=== PATIENT | male | born 1960 | race Caucasian/White ===

== ENCOUNTER 2020-07-31 06:44 | Outpatient (REF) | payer BC, SELFPAY ==
[2020-07-31 11:32] LABS: Glucose Urine UA NEG (NEG); Leukocyte Esterase Urine NEG (NEG); Nitrite Urine NEG (NEG); Specific Gravity - Urine >= 1.030 (1.005-1.025); Urine Blood TRACE (NEG); Urine Ketones NEG (NEG); Urine Protein NEG (NEG-TRACE)
[2020-07-31 11:43] LABS: Hematocrit 51.7 % (42-52); Hemoglobin 17.1 g/dl (14.0-18.0); Mean Corpuscular HGB Conc 33.1 g/dl (31.0-36.0); Mean Corpuscular Hemoglobin 30.4 pg (27.0-33.0); Mean Platelet Volume 10.8 fL (9.4-12.4); Platelet Count 261 X10*3/uL (160-400); Red Blood Count 5.62 X10*6/uL (4.60-5.80); White Blood Count 9.6 X10*3/uL (4.8-10.8)
[2020-07-31 11:52] LABS: Appearance Urine CLEAR; Color Urine YELLOW
[2020-07-31 12:05] LABS: Alanine Aminotransferase 20 U/L (0-40); Albumin Level 4.3 g/dL (3.5-5.0); Alkaline Phosphatase 71 U/L (39-117); Anion Gap 15 (12-20); Aspartate Amino Transferase 15 U/L (5-37); Blood Urea Nitrogen 15 mg/dL (9-16); Calcium 8.8 mg/dL (8.4-10.2); Carbon Dioxide 25 mmol/L (22-29); Chloride 106 mmol/L (96-108); Cholesterol 235 mg/dL; Estimated Glomerular Filt Rate > 60; Glucose Fasting 76 mg/dL (60-99); HDL Cholesterol 39 mg/dL; LDL Cholesterol Calculated 166 mg/dl; Potassium 4.7 mmol/L (3.3-5.1); Sodium 141 mmol/L (135-145); Total Protein 7.1 g/dL (6.5-8.0); Triglycerides 150 mg/dL
[2020-07-31 12:17] LABS: RBC Urine 0-2 /HPF (0); WBC Urine 0 /HPF (0-4)
[2020-07-31 12:18] LABS: Mucus Urine 2+ /LPF
[2020-07-31 12:27] LABS: Prostate Specific Antigen Scr 1.82 ng/mL (<0.05-4.0)
== END 2020-07-31 06:45 | disposition home or self-care (01) ==
LOC: HO.HMGCLDS 06:44
PROVIDERS: PCP Internal Medicine; Visit Provider Internal Medicine
DX: Z00.00 Encounter for general adult medical examination without abnormal findings (principal); E78.5 Hyperlipidemia, unspecified; G20 Parkinson's disease; Z12.5 Encounter for screening for malignant neoplasm of prostate
CPT/HCPCS: 36415; 80053; 80061; 81001; 84153; 85027

== ENCOUNTER → 2021-04-19 13:11 | Outpatient (BNVA) | payer BC, SELFPAY | PROVIDERS: PCP Internal Medicine; Visit Provider Psychiatry & Neurology Neurology ==

== ENCOUNTER 2021-05-09 17:49 | Outpatient (REF) | payer BC, SELFPAY ==
--- NOTE | ~2021-05-09 | MR_ITS ---
MR BRAIN WITHOUT CONTRAST MR CERVICAL SPINE WITHOUT CONTRAST CLINICAL INFORMATION: Parkinson's disease. COMPARISON: MRI cervical spine December 20, 2016. TECHNIQUE: MRI of the brain and cervical spine obtained using routine sequences without contrast. FINDINGS: BRAIN MRI: There are a few chronic lacunar infarcts within the left cerebellum. Chronic encephalomalacia and gliosis within the inferior right frontal lobe anteriorly. There is mild background chronic microangiopathy. Incidental developmental venous anomaly within the left cerebellum. There is no hydrocephalus, extra-axial surface collection, or herniation. The major flow voids at the skull base are preserved. There is no acute infarct on diffusion-weighted imaging. There is no intracranial hemorrhage on the gradient recalled echo acquisition. The midline structures are normal. The cerebellar tonsils are normally positioned. The craniocervical junction is normal. Osseous marrow signal intensity is homogenous. The visualized soft tissues are unremarkable. CERVICAL SPINE MRI: Redemonstrated postoperative changes following ACDF at C5-C6. There is moderate disc volume loss at C6-C7. There is no bone marrow edema. There are no acute fractures. Craniocervical junction is unremarkable. There are no cord signal changes. Cervical arterial flow voids are maintained. No significant extraspinal soft tissue findings. No cord signal changes. C2-C3: Disc osteophyte without central canal stenosis. Bilateral facet arthropathy. No foraminal stenosis. C3-C4: Disc osteophyte without central canal stenosis. Uncovertebral joint spurring and facet arthropathy result in mild bilateral foraminal encroachment. C4-C5: A central disc osteophyte protrusion mildly narrows the central canal. Uncovertebral joint spurring and advanced facet arthropathy result in moderate right and mild left foraminal stenosis. C5-C6: ACDF changes. Osteophytic ridging. Uncovertebral joint spurring results in mild bilateral foraminal encroachment. C6-C7: Disc osteophyte and ligamentum flavum thickening result in moderate central canal stenosis and flattening of the cord. Advanced uncovertebral joint hypertrophy and hypertrophic facet arthropathy result in severe right-sided foraminal stenosis. Mild left foraminal encroachment. C7-T1: Uncovertebral joint spurring results in mild left-sided foraminal encroachment. MR/MR cervical spine wo con IMPRESSION: - No acute intracranial findings. There is a chronic lacunar infarct within the left cerebellum. Chronic encephalomalacia and gliosis within the inferior right frontal lobe anteriorly. There is mild background chronic microangiopathy. Incidental developmental venous anomaly within the left cerebellum. - Multilevel cervical spondylosis, greatest at C6-C7 where multifactorial degenerative changes result in moderate central canal stenosis, flattening of the cervical cord, and severe right-sided foraminal stenosis. Spondylitic changes also result in moderate right-sided foraminal stenosis at C4-C5.
== END 2021-05-09 17:50 | disposition home or self-care (01) ==
LOC: HO.MRI 17:49
PROVIDERS: PCP Internal Medicine; Visit Provider Psychiatry & Neurology Neurology
DX: G20 Parkinson's disease (principal); M54.2 Cervicalgia; R42 Dizziness and giddiness
CPT/HCPCS: 70551; 72141

== ENCOUNTER → 2021-06-18 13:54 | Outpatient (BNVA) | payer BC, MEDICARE, SELFPAY | PROVIDERS: PCP Internal Medicine; Visit Provider Psychiatry & Neurology Neurology | DX: G20 Parkinson's disease (principal); G24.3 Spasmodic torticollis; R42 Dizziness and giddiness ==

== ENCOUNTER 2021-09-13 06:25 | Outpatient (REF) | payer MEDICARE, MEDICAID, SELFPAY ==
[2021-09-13 11:44] LABS: MANUAL DIFF FLAG NO
[2021-09-13 11:48] LABS: Basophils Absolute Auto 0.1 X10*3/uL (0.0-0.2); Basophils Percent Auto 0.8 % (0-2); Eosinophils Absolute Auto 0.3 X10*3/uL (0.0-0.4); Hemoglobin 16.4 g/dl (14.0-18.0); Imm Gran Abs Auto 0.12 X10*3/uL (0.00-0.03); Imm Gran Pct Auto 1.4 % (0.0-0.4); Lymphocytes Absolute Auto 2.6 X10*3/uL (1.2-4.9); Lymphocytes Percent Auto 30.7 % (20-40); Mean Corpuscular HGB Conc 32.8 g/dl (31.0-36.0); Mean Corpuscular Hemoglobin 30.2 pg (27.0-33.0); Mean Corpuscular Volume 92.1 fL (80.0-98.0); Mean Platelet Volume 10.9 fL (9.4-12.4); Monocytes Absolute Auto 0.7 X10*3/uL (0.1-1.2); Monocytes Percent Auto 8.7 % (2-11); Neutrophils Absolute Auto 4.6 x10*3/uL (2.0-8.3); Neutrophils Percent Auto 54.4 % (45-73); Platelet Count 283 X10*3/uL (160-400); Red Blood Count 5.43 X10*6/uL (4.60-5.80); Red Cell Distribution Width 14.5 % (11.0-16.0); White Blood Count 8.5 X10*3/uL (4.8-10.8)
[2021-09-13 12:18] LABS: Alanine Aminotransferase 12 U/L (0-40); Albumin Level 4.3 g/dL (3.5-5.0); Alkaline Phosphatase 70 U/L (39-117); Anion Gap 12 (12-20); Aspartate Amino Transferase 13 U/L (5-37); Bilirubin Total 0.7 mg/dL (0.0-1.0); Blood Urea Nitrogen 13 mg/dL (9-16); Calcium 9.4 mg/dL (8.4-10.2); Carbon Dioxide 25 mmol/L (22-29); Chloride 110 mmol/L (96-108); Cholesterol 223 mg/dL; Estimated Glomerular Filt Rate > 60; Glucose Fasting 88 mg/dL (60-99); HDL Cholesterol 35 mg/dL; LDL Cholesterol Calculated 160 mg/dl; Potassium 4.4 mmol/L (3.3-5.1); Sodium 143 mmol/L (135-145); Total Protein 7.3 g/dL (6.5-8.0); Triglycerides 142 mg/dL
== END 2021-09-13 06:26 | disposition home or self-care (01) ==
LOC: HO.HMGCLDS 06:25
PROVIDERS: Visit Provider Internal Medicine
DX: Z00.00 Encounter for general adult medical examination without abnormal findings (principal); E78.5 Hyperlipidemia, unspecified
CPT/HCPCS: 36415; 80053; 80061; 85025

== ENCOUNTER → 2022-03-20 14:29 | Outpatient (BNVA) | payer MEDICARE, MEDICAID, SELFPAY | PROVIDERS: PCP Internal Medicine; Visit Provider Psychiatry & Neurology Neurology | DX: G20 Parkinson's disease (principal); M47.812 Spondylosis without myelopathy or radiculopathy, cervical region; G24.3 Spasmodic torticollis; Z79.899 Other long term (current) drug therapy | CPT/HCPCS: 99212 ==

== ENCOUNTER → 2022-09-19 14:22 | Outpatient (BNVA) | payer MEDICARE, MEDICAID, SELFPAY | PROVIDERS: PCP Internal Medicine; Visit Provider Psychiatry & Neurology Neurology | DX: G20 Parkinson's disease (principal); G24.3 Spasmodic torticollis; M47.812 Spondylosis without myelopathy or radiculopathy, cervical region | CPT/HCPCS: 99212 ==

== ENCOUNTER 2023-01-30 12:32 | Outpatient (AMB) | payer MEDICARE, MEDICAID, SELFPAY ==
[2023-01-30 12:43] VITALS: BP 130/76; PULSE 83; O2SAT 96; BMI 25.1
--- NOTE | 2023-01-30 12:43 | A.OFFPC_ITS ---
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: No Accompanied by: Self / Same As Patient Allergies No Known Allergies Allergy (Verified 01/30/23 12:43) Medication List - Last Reconciled 01/30/23 by Carolee Valencia MD baclofen 10 mg PO BEDTIME carbidopa-levodopa 25-100 mg 1.5 tabs PO TID 90 days ibuprofen 600 mg PO TID PRN sertraline 100 mg PO DAILY trazodone 50 mg PO BEDTIME Tobacco use date assessed: 01/30/23 Fall risk assessment: No Falls in past year Last assessed Fall Risk: 01/30/23 Dental Screening Dental Screen Date: 01/30/23 Did you have a dental visit in the last 12 months?: Yes Did you have a dental problem in the last 6 months where you did not have access to dental care?: No Was dental information given to patient?: Patient has dentist HPI annual PE HPI Details Pt presents for PE. Pt tried PT for chronic neck pain with good results. [facility], [facility] Medical History (Updated 01/30/23 @ 13:44 by Carolee Valencia MD) Dizziness Depression Annual physical exam Hyperlipidemia Cervical dystonia Parkinson's disease Cervical radiculopathy Surgical History H/O colonoscopy Family History Father No problems noted. Mother No problems noted. Social History Housing: House Alcohol intake: current Alcohol intake frequency: holidays/special occasions only Patient Tobacco Use Status: Current everyday Tobacco user Cigarettes Per Day: 10 e-Cigarette/Vaping Use: Never Used Current occupational status: disabled Cognitive needs: No Hearing needs: No Vision needs: No Questionnaire PHQ-9 Over the last 2 weeks, how often have you been bothered by any of the following problems? 1. Little interest or pleasure in doing things: not at all 2. Feeling down, depressed, or hopeless: not at all 3. Trouble falling or staying asleep, or sleeping too much: not at all 4. Feeling tired or having little energy: not at all 5. Poor appetite or overeating: not at all 6. Feeling bad about yourself - or that you are a failure or have let yourself or your family down: not at all 7. Trouble concentrating on things, such as reading the newspaper or watching television: not at all 8. Moving or speaking so slowly that other people could have noticed. Or the opposite - being so fidgety or restless that you have been moving around a lot more than usual: not at all 9. Thoughts that you would be better off or of hurting yourself in some way: not at all Total score: 0 Depression Screening Interpretation: Negative Depression Screening Done: Yes [id number] - PHQ-9 Billing: Yes Source: Developed by Drs. Nithin Tubbs, Rashida Daly, Galo Oliva and colleagues, with an educational daria from [employer]. Thrive Questionnaire Date Thrive assessed: 01/30/23 I am a: Patient What is your living situation today?: I have a steady place to live Within the past 12 months, did the food you bought not last and you didn't have the money to get more?: Never true Within the past 12 months, did you worry whether your food would run out before you got money to buy more?: Never true Do you have trouble paying for medicines?: No Do you have trouble getting transportation to medical appointments?: No Do you have trouble paying your heating and electricity bill?: No Do you have trouble taking care of your child, family member or friend?: No Do you have trouble with day-to-day activities such as bathing, preparing meals, shopping, managing finances, etc.?: No Are you currently unemployed and looking for a job?: No Are you interested in more education?: No Please select the resources that you would like help with: None Currently or been in a relationship where the following occur: no concerns reported GABRIELE-7 AMB Questionnaire GABRIELE-7 Date GABRIELE - 7 assessed: 01/30/23 Source: Developed by Drs. Nithin Tubbs, Rashida BGalo Lujan and colleagues, with an educational daria from [employer]. Review of Systems Const All systems reviewed & are unremarkable except as noted in HPI and below Reports no additional complaints Eyes Reports no additional complaints ENT Reports no additional complaints Card Reports no additional complaints Resp Reports no additional complaints GI Reports no additional complaints Reports no additional complaints Physical exam (Primary Care) Vital Signs: Last Vital Signs Pulse 83 01/30/23 12:43 BP 130/76 01/30/23 12:43 Pulse Ox 96 01/30/23 12:43 Oxygen Delivery Method Room Air 01/30/23 12:43 BMI result Body Mass Index 25.1 Tobacco/Smoking Status: Tobacco use Status Tobacco use date assessed 01/30/23 01/30/23 12:44 Patient Tobacco Use Status Current everyday Tobacco 01/30/23 12:44 e-Cigarette/Vaping Use Never Used 01/30/23 12:44 PHQ-9: PHQ-9 Score PHQ-9: Total score 0 01/30/23 13:00 Depression Screening Interpretation: Negative Thrive Assessment: Date of Thrive Assessment Date Thrive assessed 01/30/23 01/30/23 12:45 Currently or been in a relationship where the following occur: no concerns reported Const General: no acute distress HENMT Head: Yes normal to inspection Ears: hearing grossly normal bilaterally General nose exam: Normal external nose present Face and sinus: Yes normal facial exam Mouth: Normal oral and palatal mucosa present Throat: Yes posterior oropharynx normal Eyes General: appearance normal, both eyes and all related structures Neck Neck: Yes no lymphadenopathy and Yes supple Resp Effort & Inspection: normal respiratory effort Auscultation: clear to auscultation bilaterally Cardio Rhythm: regular rhythm Heart sounds: S1 normal heart sound present and S2 normal heart sound present GI Inspection: Yes normal to inspection Palpation (GI): Soft to palpation Percussion: Yes normal to percussion Auscultation: normal bowel sounds Office Procedures Flu Questionnaire Does the patient have a severe egg allergy?: No Does the patient have severe life threatening allergies?: No Does the patient have a fever or illness today?: No Has the patient ever had Guillain-[place] Syndrome?: No Has the patient ever had any past reaction to a flu shot?: No Immunizations flu vacc [id number] 6mos up(PF) 60 mcg(15 mcgx4)/0.5 mL IM syringe Performing Provider: Carolee Valencia MD Performing Location: [facility] Administered by: Quan Downey CMA on 01/30/23 13:00 Dose Route Admin Location Dispensed Lot Number Expiration Date NDC Ocean Fishing Guide 0.5 mL IM Right Deltoid 0.5 mL [id number] 09/14/23 [id number] [id number] VIS Given Date VIS Provided VIS Publication Date 01/30/23 Single Vaccine 20 Eligibility Eligibility Date Funding Source Not [facility] Eligible 01/30/23 Private Assessment and Plan Assessment & Plan (1) H/O colonoscopy: Comment: 2 polyps 06/2018 repeat 3 yrs Code(s): Z98.890 - Other specified postprocedural states Plan: refer to GI (2) Hyperlipidemia: Comment: Patient refused statin Code(s): E78.5 - Hyperlipidemia, unspecified Plan: low cholesterol diet, exercise, check labs today (3) Annual physical exam: Code(s): Z00.00 - Encounter for general adult medical examination without abnormal findin gs Plan: Well-balanced diet and regular physical activity discussed with the patient , referred to GI for colonoscopy (4) Parkinson's disease: Comment: f/u with [facility] Code(s): G20 - Parkinson's disease Orders: Orders Comprehensive [place]. Panel Fast Today E78.5 - Hyperlipidemia, unspecified, G20 - Parkinson's disease, Z00.00 - Encounter for general adult medical examination without abnormal findings Lipid Panel Today E78.5 - Hyperlipidemia, unspecified, G20 - Parkinson's disease, Z00.00 - Encounter for general adult medical examination without abnormal findings PSA,Total (Free>4and<10) Today E78.5 - Hyperlipidemia, unspecified, G20 - Parkinson's disease, Z00.00 - Encounter for general adult medical examination without abnormal findings Influenza [id number] Immunization Today Z23 - Encounter for immunization Complete Blood Count Auto Diff Today E78.5 - Hyperlipidemia, unspecified, G20 - Parkinson's disease, Z00.00 - Encounter for general adult medical examination without abnormal findings UA w Microscopic Today E78.5 - Hyperlipidemia, unspecified, G20 - Parkinson's disease, Z00.00 - Encounter for general adult medical examination without abnormal findings Referrals Gastroenterology Referral E78.5 - Hyperlipidemia, unspecified, G20 - Parkinson's disease, Z00.00 - Encounter for general adult medical examination without abnormal findings, Z98.890 - Other specified postprocedural states Medications: Refilled sertraline 100 mg PO DAILY 90 tabs 3RF trazodone 50 mg PO BEDTIME 90 tabs 3RF Coding Level of Care Code Est Pt Prev Care 40-64y(02264) Diagnoses H/O colonoscopy Z98.890 Hyperlipidemia E78.5 Annual physical exam Z00.00 Parkinson's disease G20
== END 2023-01-30 13:42 | disposition home or self-care (01) ==
LOC: HO.HMGC 12:32
PROVIDERS: PCP Internal Medicine; Visit Provider Internal Medicine
DX: Z00.00 Encounter for general adult medical examination without abnormal findings (principal); G20.A1 Parkinson's disease without dyskinesia, without mention of fluctuations; Z98.890 Other specified postprocedural states; Z23 Encounter for immunization; E78.5 Hyperlipidemia, unspecified
CPT/HCPCS: 90471; 90686; 99396

== ENCOUNTER 2023-01-30 13:44 | Outpatient (REF) | payer MEDICARE, SELFPAY ==
[2023-01-30 16:17] LABS: Appearance Urine Clear; Color Urine Yellow; Glucose Urine UA Negative (Negative); Leukocyte Esterase Urine Negative (Negative); Nitrite Urine Negative (Negative); PH 5.5 (5.0-9.0); Urine Blood Negative (Negative); Urine Ketones Negative (Negative); Urine Protein Negative (Neg-Trace)
[2023-01-30 16:19] LABS: Bacteria Urine None Seen (None Seen); Hyaline Casts Urine 0-2 /LPF (0-2); RBC Urine 0-2 /HPF (0-2); Squamous Epithelial Cell Urine 0-2 /HPF (0-2); WBC Urine 0-5 /HPF (0-5)
[2023-01-30 16:29] LABS: MANUAL DIFF FLAG NO
[2023-01-30 16:32] LABS: Basophils Absolute Auto 0.1 X10*3/uL (0.0-0.2); Basophils Percent Auto 0.9 % (0-2); Eosinophils Absolute Auto 0.1 X10*3/uL (0.0-0.4); Eosinophils Percent Auto 0.9 % (0-4); Hematocrit 50.8 % (42.0-52.0); Hemoglobin 16.7 g/dl (14.0-18.0); Imm Gran Abs Auto 0.16 X10*3/uL (0.00-0.03); Imm Gran Pct Auto 1.4 % (0.0-0.4); Lymphocytes Absolute Auto 3.1 X10*3/uL (1.2-4.9); Lymphocytes Percent Auto 26.5 % (20-40); Mean Corpuscular HGB Conc 32.9 g/dl (31.0-36.0); Mean Corpuscular Hemoglobin 30.4 pg (27.0-33.0); Mean Corpuscular Volume 92.4 fL (80.0-98.0); Mean Platelet Volume 11.4 fL (9.4-12.4); Monocytes Absolute Auto 0.9 X10*3/uL (0.1-1.2); Neutrophils Absolute Auto 7.4 x10*3/uL (2.0-8.3); Neutrophils Percent Auto 62.3 % (45-73); Platelet Count 246 X10*3/uL (160-400); Red Cell Distribution Width 14.6 % (11.0-16.0); White Blood Count 11.8 X10*3/uL (4.8-10.8)
[2023-01-30 17:09] LABS: Alanine Aminotransferase < 5 U/L (0-40); Albumin Level 4.5 g/dL (3.5-5.0); Alkaline Phosphatase 71 U/L (39-117); Anion Gap 12 (12-20); Aspartate Amino Transferase 16 U/L (5-37); Bilirubin Total 0.4 mg/dL (0.0-1.0); Blood Urea Nitrogen 14 mg/dL (9-16); Calcium 9.6 mg/dL (8.4-10.2); Carbon Dioxide 27 mmol/L (22-29); Chloride 105 mmol/L (96-108); Cholesterol 236 mg/dL (<200); Estimated Glomerular Filt Rate > 60; Glucose Fasting 82 mg/dL (60-99); HDL Cholesterol 41 mg/dL (>40); LDL Cholesterol Calculated 171 mg/dL (<100); Potassium 5.1 mmol/L (3.3-5.1); Sodium 139 mmol/L (135-145); Total Protein 7.8 g/dL (6.5-8.0); Triglycerides 122 mg/dL (<150)
== END 2023-01-30 13:45 | disposition home or self-care (01) ==
LOC: HO.HMGCLDS 13:44
PROVIDERS: PCP Internal Medicine; Visit Provider Internal Medicine
DX: Z00.00 Encounter for general adult medical examination without abnormal findings (principal); Z12.5 Encounter for screening for malignant neoplasm of prostate; E78.5 Hyperlipidemia, unspecified; G20.C Parkinsonism, unspecified
CPT/HCPCS: 36415; 80053; 80061; 81001; 84153; 85025

== ENCOUNTER 2023-04-08 12:57 | Outpatient (AMB) | payer MEDICARE, SELFPAY ==
--- NOTE | 2023-04-08 13:08 | MHC.OFFVIS ---
Intake Vital Signs 04/08/23 13:10 Height 5 ft 2 in Weight 135 lb BMI 24.7 BP 131/71 Blood Pressure Location Lt brachial Position Sitting Pulse 79 Intake Visit Reasons: Pre colonoscopy screening Intake Note: Mr. Saucedo presents in office today as a new patient for pre colonoscopy screening. CC: Patient denies having any GI symptoms today and reports doing well. Coordinator Volunteer Services Required: Yes Coordinator Volunteer Services Language: Stateless Coordinator Volunteer Services Name: sister Accompanied by: Sister Allergies No Known Allergies Allergy (Verified 04/08/23 13:15) HPI Pre colonoscopy screening HPI Details 62-year-old male here for preprocedural meeting to discuss a screening colonoscopy. He is referred by Carolee Valencia of [facility] primary care. PMX Parkinson's disease High cholesterol Cervical spondylosis with radiculopathy Depression Dizziness History of tubular adenomas - 2019 * SURGICAL HISTORY Colonoscopy-2019= 2 TA is repeat in 3 years Cervical spine surgery with hardware 2014 * ALLERGIES: NKDA * [employer] LABS: Laboratory Tests 01/30/23 13:52 WBC 11.8 H Hgb 16.7 Hct 50.8 Plt Count 246 Estimated GFR > 60 Total Bilirubin 0.4 AST 16 ALT < 5 Alkaline Phosphata se 71 2019 COLONOSCOPY-[facility] Findings: Terminal Ileum ? Normal Cecum ? normal Ascending Colon ? 6-8 cm sessile polyp removed with cold snare Transverse Colon - normal Descending Colon ? 4-5 mm sessile polyp removed with forceps, another 7-8 mm sessile polyp removed with cold snare Sigmoid Colon ? 6-8 mm sessile polyp removed with cold snare Rectum ? normal Ano-rectum - retroflexion and forward view with grade II moderate sized internal hemorrhoids and tag Colon preparation: Good Impression and Post Procedure Diagnosis: Plan: Await pathology results High fiber diet and hemorrhoid care leaflet Repeat Colonoscopy interval based on path results ? in 3-5 years if polyps are adenomatous and 10 years if polyps are hyperplastic. A. Colon, ascendin g polyp, polypecto my: Tubular adeno ma. B. Colon, descendi ng polyps, polypec susannah: Sessile ser rated adenoma; add itional fragment of colonic mucosa with no significan t histopathology.0 C. Colon, sigmoid polyp, polypectomy : Hyperplastic po lyp TODAY'S VISIT Stateless # translates per pt request He is asking for the prostate cancer screen as well as the colonoscopy, and I explain that the prostate dose not lie inside the colon so he would need a urologist for this. This is a frequent misconception that gentleman since we do the prostate check through a rectal exam but I explained to him that there does feeling the prostate through the colon wall. He denies any bowel or upper GI problems. He denies any cardiac or respiratory problems. No ID problems. There are no prior problems with anesthesia or sedation. He had 2 large polyps in 2017. [facility] Medical History (Updated 04/08/23 @ 13:31 by PREET Wang) Annual physical exam Dizziness Depression Hyperlipidemia Cervical dystonia Parkinson's disease Cervical radiculopathy Surgical History (Updated 04/08/23 @ 13:31 by PREET Wang) H/O colonoscopy Family History Father No problems noted. Mother No problems noted. Social History Housing: House Alcohol intake: current Alcohol intake frequency: holidays/special occasions only Patient Tobacco Use Status: Current everyday Tobacco user Cigarettes Per Day: 10 e-Cigarette/Vaping Use: Never Used Current occupational status: disabled Cognitive needs: No Hearing needs: No Vision needs: No Review of Systems Const Denies fatigue, Denies fever(s), Denies night sweats, Denies poor appetite and Denies weight loss ENT Reports Normal hearing present, Denies dental pain, Denies dysphagia, Denies hearing loss, Denies mouth pain, Denies odynophagia, Denies throat swelling, Denies tongue swelling and Reports other (Dentition adequate) Card Reports no additional complaints Resp Reports no additional complaints GI Denies abdominal pain, Denies melena, Denies bloating, Denies hematochezia, Denies constipation, Denies GI cramping, Denies dysphagia, Denies excessive flatus, Denies early satiety, Denies heartburn, Denies diarrhea, Denies nausea, Denies odynophagia, Denies vomiting and Denies hematemesis Musc Reports abnormal gait and Reports stiffness Skin/Breast Denies pruritus, Denies lesions, Denies rash and Denies jaundice Neuro Reports Normal hearing present, Reports Neuro-related abnormal movements, Denies Abnormal speech present, Reports abnormal gait and Reports tremor(s) Endo Denies fatigue Aller/Immun Denies throat swelling and Denies tongue swelling Physical Exam Vital Signs: Last Vital Signs Pulse 79 04/08/23 13:10 BP 131/71 04/08/23 13:10 BMI result Body Mass Index 24.7 Const General: cooperative, no acute distress, well developed and well groomed Nutritional Appearance: average body habitus and well nourished Orientation/consciousness: oriented to person, oriented to place and oriented to time Limitations: language barrier and other limitations (Parkinson's with shuffling gait) HEENT Head: Yes normocephalic and Yes atraumatic Eyes General: appearance normal, both eyes and all related structures Pupils: Equal, round and reactive pupils present Neck Neck: Yes normal visual inspection and Yes no lymphadenopathy Thyroid: Thyroid normal Resp Effort & Inspection: normal respiratory effort and able to speak in complete sentences Auscultation: clear to auscultation bilaterally and diminished lung sounds bilateral in the lower lung koo Cardio Rate: regular rate Rhythm: regular rhythm Heart sounds: Normal, physiologic split S2 sound present Peripheral pulses: radial pulses present and posterior tibial pulses present GI Inspection: No distended and No Abdominal panniculus present Palpation (GI): Soft to palpation, nontender, no guarding, not rigid and No hepatosplenomegaly present Percussion: Yes normal to percussion Auscultation: normal bowel sounds Rectal Exam - Male: Yes deferred Skin General skin exam: no rashes or lesions noted, turgor normal, skin not dry, no jaundice, No spider nevi and no striae Rashes: no rashes Nails: normal Neuro Other: tremor at rest oh head General: oriented to person, oriented to place and oriented to time Cranial nerves: Yes Equal, round and reactive pupils present and Yes Normal hearing present Cognition (Neuro): normal cognition Speech: No Abnormal speech present Gait exam (Neuro): Shuffling gait present Motor exam (neuro): Tremors during motor activity present (Marked of the head at rest) and Motor abnormalites present (Delay of initiation of gait) Extrem General: Yes normal to inspection, No clubbing, No cyanosis and No edema Psych Appearance: grossly normal and well kempt Mental Status: mental status grossly normal Speech and movement: Normal speech and movement present Affect: normal affect Attitude: cooperative Thought process: Normal thought process present and not confabulating Thought content: Normal thought content present Insight: Fair insight present (Psych) Judgement: Fair judgement present (Psych) Results Reviewed Results Reviewed: Laboratory Tests 01/30/23 13:52 WBC 11.8 H Hgb 16.7 Hct 50.8 Plt Count 246 Estimated GFR > 60 Total Bilirubin 0.4 AST 16 ALT < 5 Alkaline Phosphatase 71 Assessment & Plan Assessment & Plan (1) Tubular adenoma of colon: Comment: 2019 scope= 2 TA is repeat in 3 years Code(s): D12.6 - Benign neoplasm of colon, unspecified (2) Pre-op examination: Code(s): Z01.818 - Encounter for other preprocedural examination Plan Stateless # sister translates per pt request He is asking for the prostate cancer screen as well as the colonoscopy, and I explain that the prostate dose not lie inside the colon so he would need a urologist for this. This is a frequent misconception that gentleman since we do the prostate check through a rectal exam but I explained to him that there does feeling the prostate through the colon wall. He denies any bowel or upper GI problems. He denies any cardiac or respiratory problems. No ID problems. There are no prior problems with anesthesia or sedation. He had 2 large polyps in 2017. Orders: Orders Colonoscopy - GI Use Only Today D12.6 - Benign neoplasm of colon, unspecified Medications: New peg 3350-electrolytes 236-22.74-6.74 -5.86 gram (Golytely) until fecal effluent is clear; do not exceed a total volume of 2,000 mL 240 mL PO Q10M 1 day 4,000 mL 0RF Z12.11 - Encounter for screening for malignant neoplasm of colon bisacodyl (Dulcolax (bisacodyl)) 10 mg (2 x 5 mg) PO BEDTIME 2 days 4 tabs 0RF Coding Level of Care Code New Pt Level 3 (00971) Diagnoses Tubular adenoma of colon D12.6 Pre-op examination Z01.818
[2023-04-08 13:10] VITALS: BP 131/71; PULSE 79; BMI 24.7
== END 2023-04-08 13:45 | disposition home or self-care (01) ==
PROVIDERS: PCP Internal Medicine; Visit Provider Nurse Practitioner
DX: D12.6 Benign neoplasm of colon, unspecified (principal); Z01.818 Encounter for other preprocedural examination
CPT/HCPCS: 99203

== ENCOUNTER → 2023-04-08 12:57 | Outpatient (BNVA) | payer MEDICARE, SELFPAY | PROVIDERS: PCP Internal Medicine; Visit Provider Nurse Practitioner | DX: Z01.818 Encounter for other preprocedural examination (principal); Z86.010 Personal history of colon polyps | CPT/HCPCS: 99202 ==

== ENCOUNTER 2023-08-06 15:21 | Outpatient (AMB) | payer MEDICARE, SELFPAY ==
--- NOTE | 2023-08-06 15:24 | MHC.OFFVIS ---
Vital Signs 08/06/23 15:25 Height 5 ft 2 in Weight 134 lb 6 oz BMI 24.6 BP 120/76 Blood Pressure Location Rt brachial Position Sitting Respiration 16 Pulse 103 H Pulse Source Pulse Oximeter Pulse Oximetry (%) 96 Oxygen Delivery Method Room Air Intake Visit Reasons: 6m follow up - Confirmed Intake Note: Pt presents to the office for follow up for cervical dystonia. 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 Allergies No Known Allergies Allergy (Verified 08/06/23 15:24) Medication List - Last Reconciled 08/06/23 by Enid Mcclelland MD baclofen 10 mg PO BEDTIME bisacodyl (Dulcolax (bisacodyl)) 10 mg (2 x 5 mg) PO BEDTIME 2 days carbidopa-levodopa 25-100 mg 1.5 tabs PO TID 90 days ibuprofen 600 mg PO TID PRN peg 3350-electrolytes 236-22.74-6.74 -5.86 gram (Golytely) 240 mL PO Q10M 1 day sertraline 100 mg PO DAILY trazodone 50 mg PO BEDTIME HPI Comments Details: 62y/o male with parkinsons disease , neck pain , cervical dystonia and depression comes for follow up His parkinsons is stable with the current regimen His neck pain and stiffness are better with PT MRI C spine showed cervical spondylosis greatest at C6-C7 level with moderate stenosis and flattening of the central cord and severe right foraminal stenosis. There were moderate to mild changes in the other levels. 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 [facility] Medical History (Updated 08/06/23 @ 15:39 by Enid Mcclelland MD) Parkinson's disease without dyskinesia Annual physical exam Dizziness Depression Hyperlipidemia Cervical dystonia Parkinson's disease Cervical radiculopathy Surgical History H/O colonoscopy Family History Father No problems noted. Mother No problems noted. Social History Housing: House Alcohol intake: current Alcohol intake frequency: holidays/special occasions only Patient Tobacco Use Status: Current everyday Tobacco user Cigarettes Per Day: 10 e-Cigarette/Vaping Use: Never Used Current occupational status: disabled Cognitive needs: No Hearing needs: No Vision needs: No Physical Exam Vital Signs: Last Vital Signs Pulse 103 H 08/06/23 15:25 Resp 16 08/06/23 15:25 BP 120/76 08/06/23 15:25 Pulse Ox 96 08/06/23 15:25 Oxygen Delivery Method Room Air 08/06/23 15:25 BMI result Body Mass Index 24.6 Const Other: moderate head tremors and cervical dystonia General: cooperative and healthy appearing Nutritional Appearance: average body habitus Neuro Other: No rest tremors mild bradykinesia R>L Fine finger movements and foot taps decreased right more than left. Head tremors. Evaluation of the gait -head tremors and severely decreased arm swing on the right and mild stooped. Assessment & Plan Assessment & Plan (1) Parkinson's disease without dyskinesia: Code(s): G20.A1 - Parkinson's disease without dyskinesia, without mention of fluctuations Category: Medical (2) Cervical spondylosis: Code(s): M47.812 - Spondylosis without myelopathy or radiculopathy, cervical region Category: Medical (3) Cervical dystonia: Code(s): G24.3 - Spasmodic torticollis Category: Medical Plan Continue carbidopa/levodopa 25/100 1.5 tabs tid baclofen 10mg qhs ( flexeril co pay increased as of Mar 17 2022 ) continue exercise Medications: Refilled carbidopa-levodopa 25-100 mg 1.5 tabs PO TID 90 days 450 tabs 6RF Coding Level of Care Code Est Pt Level 4 (87143) Diagnoses Parkinson's disease without dyskinesia G20.A1 Cervical spondylosis M47.812 Cervical dystonia G24.3
[2023-08-06 15:25] VITALS: BP 120/76; PULSE 103; RESP 16; O2SAT 96; BMI 24.6
== END 2023-08-06 15:43 | disposition home or self-care (01) ==
LOC: HO.HSMS 15:22
PROVIDERS: PCP Internal Medicine; Visit Provider Psychiatry & Neurology Neurology
DX: G20.A1 Parkinson's disease without dyskinesia, without mention of fluctuations (principal); M47.812 Spondylosis without myelopathy or radiculopathy, cervical region; G24.3 Spasmodic torticollis
CPT/HCPCS: 99214

== ENCOUNTER → 2023-08-06 15:22 | Outpatient (BNVA) | payer MEDICARE, SELFPAY | PROVIDERS: PCP Internal Medicine; Visit Provider Psychiatry & Neurology Neurology | DX: G20.A1 Parkinson's disease without dyskinesia, without mention of fluctuations (principal); M47.812 Spondylosis without myelopathy or radiculopathy, cervical region; G24.3 Spasmodic torticollis | CPT/HCPCS: 99212 ==

== ENCOUNTER 2024-02-25 12:39 | Outpatient (AMB) | payer MEDICARE, SELFPAY ==
--- NOTE | 2024-02-25 12:44 | A.OFFPC_ITS ---
Vital Signs 02/25/24 12:45 Height 5 ft 2 in Weight 135 lb BMI 24.7 BP 110/74 Blood Pressure Location Lt brachial Position Sitting Pulse 80 Pulse Source Pulse Oximeter Pulse Oximetry (%) 97 Oxygen Delivery Method Room Air Intake Visit Reasons: Annual PE Intake Note: Pt is here today for PE. Allergies No Known Allergies Allergy (Verified 02/25/24 12:49) Medication List - Last Reconciled 02/25/24 by Carolee Valencia MD baclofen 10 mg PO BEDTIME carbidopa-levodopa 25-100 mg 1.5 tabs PO TID 90 days ibuprofen 600 mg PO TID PRN peg 3350-electrolytes 236-22.74-6.74 -5.86 gram (Golytely) 240 mL PO Q10M 1 day sertraline 100 mg PO DAILY Tobacco use date assessed: 02/25/24 Fall risk assessment: No Falls in past year Last assessed Fall Risk: 02/25/24 Dental Screening Dental Screen Date: 02/25/24 Did you have a dental visit in the last 12 months?: Yes Did you have a dental problem in the last 6 months where you did not have access to dental care?: No Was dental information given to patient?: Patient has dentist HPI Annual PE HPI Details Pt presents for PE. [facility] Medical History (Updated 02/25/24 @ 13:21 by Carolee Valencia MD) Annual physical exam Parkinson's disease without dyskinesia Dizziness Depression Hyperlipidemia Cervical dystonia Parkinson's disease Cervical radiculopathy Surgical History H/O colonoscopy Family History Father No problems noted. Mother No problems noted. Social History Housing: House Alcohol intake: current Alcohol intake frequency: holidays/special occasions only Patient Tobacco Use Status: Current everyday Tobacco user Cigarettes Per Day: 10 e-Cigarette/Vaping Use: Never Used service: No Current occupational status: disabled Cognitive needs: No Hearing needs: No Vision needs: No Questionnaire PHQ-9 Over the last 2 weeks, how often have you been bothered by any of the following problems? 1. Little interest or pleasure in doing things: not at all 2. Feeling down, depressed, or hopeless: not at all 3. Trouble falling or staying asleep, or sleeping too much: not at all 4. Feeling tired or having little energy: not at all 5. Poor appetite or overeating: not at all 6. Feeling bad about yourself - or that you are a failure or have let yourself or your family down: not at all 7. Trouble concentrating on things, such as reading the newspaper or watching television: not at all 8. Moving or speaking so slowly that other people could have noticed. Or the opposite - being so fidgety or restless that you have been moving around a lot more than usual: not at all 9. Thoughts that you would be better off or of hurting yourself in some way: not at all Total score: 0 Depression Screening Interpretation: Negative Depression Screening Done: Yes 23775 - PHQ-9 Billing: Yes Source: Developed by Drs. Nithin Tubbs, Rashida Daly, Galo Oliva and colleagues, with an educational daria from [email or web address]. Thrive Questionnaire Date Thrive assessed: 02/25/24 I am a: Patient What is your living situation today?: I have a steady place to live Within the past 12 months, did the food you bought not last and you didn't have the money to get more?: Never true Within the past 12 months, did you worry whether your food would run out before you got money to buy more?: Never true Do you have trouble paying for medicines?: No Do you have trouble getting transportation to medical appointments?: No Do you have trouble paying your heating and electricity bill?: No Do you have trouble taking care of your child, family member or friend?: No Do you have trouble with day-to-day activities such as bathing, preparing meals, shopping, managing finances, etc.?: No Are you currently unemployed and looking for a job?: No Are you interested in more education?: No Please select the resources that you would like help with: None THRIVE Score: 0 AUDIT C Alcohol Use Questionnaire (AUDIT-C) 1. How often do you have a drink containing alcohol?: Never 3. How often do you have six or more drinks on one occasion?: Never Total Score: 0 GABRIELE-7 AMB Questionnaire GABRIELE-7 Date GABRIELE - 7 assessed: 02/25/24 Feeling nervous, anxious, or on edge: 0 = Not at all Not being able to stop or control worryin = Not at all Worrying too much about different things: 0 = Not at all Trouble relaxin = Not at all Being so restless that it is hard to sit still: 0 = Not at all Becoming easily annoyed or irritable: 0 = Not at all Feeling afraid as if something awful might happen: 0 = Not at all Total GABRIELE-7 score (0-4 normal; 5-9 mild; 10-14 moderate; 15-21 severe): 0 Source: Developed by Drs. Nithin Tubbs, Rashida Daly, Galo Oliva and colleagues, with an educational daria from [email or web address]. GABRIELE-7 Assessment Billing GABRIELE-7 Assessment Tool: GABRIELE-7 Assessment 56351 Review of Systems Const All systems reviewed & are unremarkable except as noted in HPI and below Eyes Reports no additional complaints ENT Reports no additional complaints Card Reports no additional complaints Resp Reports no additional complaints GI Reports no additional complaints Reports no additional complaints Physical exam (Primary Care) Vital Signs: Last Vital Signs Pulse 80 02/25/24 12:45 BP 110/74 02/25/24 12:45 Pulse Ox 97 02/25/24 12:45 Oxygen Delivery Method Room Air 02/25/24 12:45 BMI result Body Mass Index 24.7 Tobacco/Smoking Status: Tobacco use Status Tobacco use date assessed 02/25/24 02/25/24 12:53 Patient Tobacco Use Status Current everyday Tobacco 02/25/24 12:53 e-Cigarette/Vaping Use Never Used 02/25/24 12:53 PHQ-9: PHQ-9 Score PHQ-9: Total score 0 02/25/24 12:53 Depression Screening Interpretation: Negative Thrive Assessment: Date of Thrive Assessment Date Thrive assessed 02/25/24 02/25/24 12:53 Const General: no acute distress HENMT Head: Yes normal to inspection Ears: hearing grossly normal bilaterally Face and sinus: Yes normal facial exam Mouth: Normal oral and palatal mucosa present Throat: Yes posterior oropharynx normal Eyes General: appearance normal, both eyes and all related structures Neck Neck: Yes no lymphadenopathy and Yes supple Resp Effort & Inspection: normal respiratory effort Auscultation: clear to auscultation bilaterally Cardio Rhythm: regular rhythm Heart sounds: S1 normal heart sound present and S2 normal heart sound present GI Inspection: Yes normal to inspection Palpation (GI): Soft to palpation Percussion: Yes normal to percussion Auscultation: normal bowel sounds Coding Level of Care Code Est Pt Prev Care >65y(89297) Diagnoses Parkinson's disease G20 Hyperlipidemia E78.5 Annual physical exam Z00.00 Depression F32.9 Additional Codes GABRIELE-7 Assessment Billing - GABRIELE-7 Assessment Tool: GABRIELE-7 Assessment 89409 ([id number]) PHQ-9 - 32603 - PHQ-9 Billing: Yes ([id number]) Assessment & Plan Assessment & Plan (1) Parkinson's disease: Comment: f/u neurology Code(s): G20 - Parkinson's disease Category: Medical Plan: Continue carbidopa levodopa and follow-up with Neurology (2) Hyperlipidemia: Comment: Patient refused statin Code(s): E78.5 - Hyperlipidemia, unspecified Category: Medical Plan: Continue low-cholesterol diet patient declined medications (3) Annual physical exam: Code(s): Z00.00 - Encounter for general adult medical examination without abnormal findings Category: Medical Plan: Well-balanced diet regular physical activity discussed with the patient. He ref used colonoscopy. Patient had negative Cologuard in 11/04/2023. Patient was made aware of he is a increased risk for undetected colon polyps or cancer even with negative Cologuard because of personal history of colon polyps. colonoscopy is advisable (4) Depression: Code(s): F32.9 - Major depressive disorder, single episode, unspecified Category: Medical Plan: Continue sertraline Orders: Orders Comprehensive [place]. Panel Fast Today F32.9 - Major depressive disorder, single episode, unspecified, Z00.00 - Encounter for general adult medical examination without abnormal findings UA w Microscopic Today F32.9 - Major depressive disorder, single episode, unspecified, Z00.00 - Encounter for general adult medical examination without abnormal findings PSA,Total (Free>4and<10) Today F32.9 - Major depressive disorder, single episode, unspecified, Z00.00 - Encounter for general adult medical examination without abnormal findings Complete Blood Count Auto Diff Today F32.9 - Major depressive disorder, single episode, unspecified, Z00.00 - Encounter for general adult medical examination without abnormal findings Lipid Panel Today F32.9 - Major depressive disorder, single episode, unspecified, Z00.00 - Encounter for general adult medical examination without abnormal findings Medications: Refilled sertraline 100 mg PO DAILY 90 tabs 3RF
[2024-02-25 12:45] VITALS: BP 110/74; PULSE 80; O2SAT 97; BMI 24.7
== END 2024-02-25 13:18 | disposition home or self-care (01) ==
PROVIDERS: PCP Internal Medicine; Visit Provider Internal Medicine
DX: Z00.00 Encounter for general adult medical examination without abnormal findings (principal); G20.C Parkinsonism, unspecified; E78.5 Hyperlipidemia, unspecified; F32.9 Major depressive disorder, single episode, unspecified

== ENCOUNTER 2024-02-25 12:39 | Outpatient (REF) | payer MEDICARE, SELFPAY ==
[2024-02-25 15:55] LABS: MANUAL DIFF FLAG NO
[2024-02-25 16:14] LABS: Albumin Level 4.3 g/dL (3.5-5.0); Anion Gap 12 (12-20); Aspartate Amino Transferase 17 U/L (5-37); Bilirubin Total 0.5 mg/dL (0.0-1.0); Blood Urea Nitrogen 17 mg/dL (9-16); Calcium 9.3 mg/dL (8.4-10.2); Carbon Dioxide 26 mmol/L (22-29); Chloride 107 mmol/L (96-108); Cholesterol 204 mg/dL (<200); Estimated Glomerular Filt Rate > 60; Glucose Fasting 91 mg/dL (60-99); HDL Cholesterol 31 mg/dL (>40); LDL Cholesterol Calculated 150 mg/dL (<100); Sodium 140 mmol/L (135-145); Total Protein 7.4 g/dL (6.5-8.0); Triglycerides 116 mg/dL (<150)
[2024-02-25 16:18] LABS: Appearance Urine Turbid; Color Urine Dark Yellow; Glucose Urine UA Negative (Negative); Leukocyte Esterase Urine Negative (Negative); Nitrite Urine Negative (Negative); PH 5.5 (5.0-9.0); Specific Gravity - Urine >= 1.030 (1.005-1.025); Urine Blood Negative (Negative); Urine Ketones Trace mg/dL (Negative); Urine Protein Trace mg/dL (Neg-Trace)
[2024-02-25 16:24] LABS: Bacteria Urine None Seen (None Seen); RBC Urine 0-2 /HPF (0-2); Squamous Epithelial Cell Urine 0-2 /HPF (0-2); WBC Urine 0-5 /HPF (0-5)
[2024-02-25 16:26] LABS: PSA,Total (Free>4and<10) 2.57 ng/mL (0.00-4.00)
[2024-02-25 16:29] LABS: Basophils Absolute Auto 0.1 X10*3/uL (0.0-0.2); Eosinophils Absolute Auto 0.1 X10*3/uL (0.0-0.4); Hematocrit 47.9 % (42.0-52.0); Hemoglobin 16.1 g/dl (14.0-18.0); Imm Gran Abs Auto 0.27 X10*3/uL (0.00-0.03); Lymphocytes Absolute Auto 2.5 X10*3/uL (1.2-4.9); Lymphocytes Percent Auto 18.2 % (20-40); Mean Corpuscular HGB Conc 33.6 g/dl (31.0-36.0); Mean Corpuscular Hemoglobin 30.3 pg (27.0-33.0); Mean Corpuscular Volume 90.2 fL (80.0-98.0); Mean Platelet Volume 10.8 fL (9.4-12.4); Monocytes Percent Auto 7.1 % (2-11); Neutrophils Absolute Auto 9.6 x10*3/uL (2.0-8.3); Neutrophils Percent Auto 70.7 % (45-73); Platelet Count 287 X10*3/uL (160-400); Red Blood Count 5.31 X10*6/uL (4.60-5.80); Red Cell Distribution Width 13.8 % (11.0-16.0); White Blood Count 13.5 X10*3/uL (4.8-10.8)
[2024-02-25 16:43] LABS: Alanine Aminotransferase 7 U/L (0-40); Alkaline Phosphatase 77 U/L (39-117)
== END 2024-02-25 12:40 | disposition home or self-care (01) ==
LOC: HO.HMGCLDS 12:39
PROVIDERS: PCP Internal Medicine; Visit Provider Internal Medicine
DX: Z00.00 Encounter for general adult medical examination without abnormal findings (principal); G20.A1 Parkinson's disease without dyskinesia, without mention of fluctuations; E78.5 Hyperlipidemia, unspecified; F32.9 Major depressive disorder, single episode, unspecified; Z79.899 Other long term (current) drug therapy; Z12.5 Encounter for screening for malignant neoplasm of prostate
CPT/HCPCS: 36415; 80053; 80061; 81001; 84153; 85025; 96127; 99397

== ENCOUNTER 2024-08-18 12:37 | Outpatient (AMB) | payer MEDICARE, SELFPAY ==
--- NOTE | 2024-08-18 13:08 | MHC.OFFVIS ---
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 His neck pain and stiffness are better with PT - he has chronic back issues. He declined neck surgery . MRI C spine showed cervical spondylosis greatest at C6-C7 level with moderate stenosis and flattening of the central cord and severe right foraminal stenosis. There were moderate to mild changes in the other levels. 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 [facility] Medical History Annual physical exam Parkinson's disease without dyskinesia Dizziness Depression Hyperlipidemia Cervical dystonia Parkinson's disease Cervical radiculopathy Surgical History H/O colonoscopy Family History Father No problems noted. Mother No problems noted. Social History Housing: House Alcohol intake: current Alcohol intake frequency: holidays/special occasions only Patient Tobacco Use Status: Current everyday Tobacco user Cigarettes Per Day: 10 e-Cigarette/Vaping Use: Never Used service: No Current occupational status: disabled Cognitive needs: No Hearing needs: No Vision needs: No Physical Exam Vital Signs: Last Vital Signs Pulse 92 08/18/24 13:09 BP 116/68 08/18/24 13:09 Pulse Ox 92 08/18/24 13:09 Oxygen Delivery Method Room Air 08/18/24 13:09 BMI result Body Mass Index 25.1 Const Other: moderate head tremors and cervical dystonia General: cooperative and healthy appearing Nutritional Appearance: average body habitus Neuro Other: No rest tremors mild bradykinesia R>L Fine finger movements and foot taps decreased right more than left. Head tremors. Evaluation of the gait -head tremors and severely decreased arm swing on the right and mild stooped. Assessment & Plan Assessment & Plan (1) Parkinson's disease without dyskinesia: Code(s): G20.A1 - Parkinson's disease without dyskinesia, without mention of fluctuations Category: Medical Qualifiers: Fluctuating manifestations: without fluctuating manifestations Qualified Code(s): G20.A1 - Parkinson's disease without dyskinesia, without mention of fluctuations (2) Cervical spondylosis: Code(s): M47.812 - Spondylosis without myelopathy or radiculopathy, cervical region Category: Medical (3) Cervical dystonia: Code(s): G24.3 - Spasmodic torticollis Category: Medical Plan Continue carbidopa/levodopa 25/100 1.5 tabs tid( does not want to increase dose) baclofen 10mg qhs ( flexeril co pay increased as of Mar 17 2022 ) continue exercise He declined C spine surgery Coding Level of Care Code Est Pt Level 4 (88677) Diagnoses Parkinson's disease without dyskinesia or fluctuating manifestations G20.A1 Fluctuating manifestations: without fluctuating manifestations Cervical spondylosis M47.812 Cervical dystonia G24.3
[2024-08-18 13:09] VITALS: BP 116/68; PULSE 92; O2SAT 92; BMI 25.1
== END 2024-08-18 13:28 | disposition home or self-care (01) ==
LOC: HO.HSMS 12:38
PROVIDERS: PCP Internal Medicine; Visit Provider Psychiatry & Neurology Neurology
DX: G20.A1 Parkinson's disease without dyskinesia, without mention of fluctuations (principal); M47.812 Spondylosis without myelopathy or radiculopathy, cervical region; G24.3 Spasmodic torticollis
CPT/HCPCS: 99214

== ENCOUNTER → 2024-08-18 12:37 | Outpatient (BNVA) | payer MEDICARE, SELFPAY | PROVIDERS: PCP Internal Medicine; Visit Provider Psychiatry & Neurology Neurology | DX: M47.812 Spondylosis without myelopathy or radiculopathy, cervical region (principal); G24.3 Spasmodic torticollis; G20.A1 Parkinson's disease without dyskinesia, without mention of fluctuations | CPT/HCPCS: 99212 ==

== ENCOUNTER 2024-12-30 08:16 | Outpatient (REF) | payer MEDICARE, SELFPAY ==
--- NOTE | ~2024-12-30 | XR_ITS ---
EXAMINATION: XR CHEST 2 VIEWS HISTORY: R05.9 - Cough, unspecified COMPARISON: Comparison is made with the prior examination dated 08/12/2018. FINDINGS: PA and lateral views of the chest are submitted. The lungs are expanded and clear. There is no pleural effusion, pneumothorax, or pulmonary vascular congestion. The heart is normal in size. There is degenerative disc disease of the spine. XR/XR chest 2V IMPRESSION: No acute cardiopulmonary abnormality. Electronically signed by: Nithin Hernandez MD 12/30/2024 08:47 AM EDT
[2024-12-30 10:05] LABS: MANUAL DIFF FLAG NO
[2024-12-30 10:10] LABS: Hematocrit 49.9 % (42.0-52.0); Hemoglobin 16.8 g/dl (14.0-18.0); Imm Gran Abs Auto 0.16 X10*3/uL (0.00-0.03); Imm Gran Pct Auto 1.6 % (0.0-0.4); Lymphocytes Absolute Auto 3.1 X10*3/uL (1.2-4.9); Mean Corpuscular HGB Conc 33.7 g/dl (31.0-36.0); Mean Corpuscular Hemoglobin 31.0 pg (27.0-33.0); Mean Corpuscular Volume 92.1 fL (80.0-98.0); NRBC Abs Auto 0.000 X10*3/uL (0.0-0.012); NRBC Pct Auto 0.0 /100WBC (0.0-0.2); Platelet Count 285 X10*3/uL (160-400); Red Blood Count 5.42 X10*6/uL (4.60-5.80); White Blood Count 10.2 X10*3/uL (4.8-10.8)
[2024-12-30 10:37] LABS: Appearance Urine Clear; Glucose Urine UA Negative (Negative); PH 5.5 (5.0-9.0); Specific Gravity - Urine 1.020 (1.005-1.025); UMIC TRIGGER UA YES
[2024-12-30 11:11] LABS: PSA,Total (Free>4and<10) 3.34 ng/mL (0.00-4.00)
[2024-12-30 11:29] LABS: Alanine Aminotransferase 8 U/L (0-40); Albumin Level 4.3 g/dL (3.5-5.0); Alkaline Phosphatase 66 U/L (39-117); Anion Gap 14 (12-20); Aspartate Amino Transferase 20 U/L (5-37); Blood Urea Nitrogen 18 mg/dL (9-16); Calcium 9.2 mg/dL (8.4-10.2); Carbon Dioxide 25 mmol/L (22-29); Chloride 107 mmol/L (96-108); Cholesterol 224 mg/dL (<200); Estimated Glomerular Filt Rate > 60; HDL Cholesterol 36 mg/dL (>40); Potassium 5.5 mmol/L (3.3-5.1); Sodium 140 mmol/L (135-145); Total Protein 7.1 g/dL (6.5-8.0); Triglycerides 123 mg/dL (<150)
== END 2024-12-30 08:17 | disposition home or self-care (01) ==
LOC: HO.HMGCX 08:16
PROVIDERS: PCP Internal Medicine; Visit Provider Internal Medicine
DX: Z00.00 Encounter for general adult medical examination without abnormal findings (principal); R05.9 Cough, unspecified; E78.5 Hyperlipidemia, unspecified; Z12.5 Encounter for screening for malignant neoplasm of prostate
CPT/HCPCS: 36415; 71046; 80053; 80061; 81001; 84153; 85025

== ENCOUNTER → 2024-12-30 08:34 | Outpatient (BNV) | payer MEDICARE, SELFPAY | PROVIDERS: PCP Internal Medicine; Visit Provider Radiology Diagnostic Radiology | DX: R05.9 Cough, unspecified (principal) | CPT/HCPCS: 71046 ==

== ENCOUNTER 2025-01-04 09:31 | Outpatient (AMB) | payer MEDICARE, SELFPAY ==
--- NOTE | 2025-01-04 09:33 | MHC.PC.OV ---
Vital Signs 01/04/25 09:34 Height 5 ft 2 in Weight 134 lb BMI 24.5 BP 136/80 Blood Pressure Location Lt brachial Position Sitting Respiration 18 Pulse 98 Pulse Source Pulse Oximeter Pulse Oximetry (%) 99 Oxygen Delivery Method Room Air Intake Visit Reasons: Follow up Intake Note: Pt is here today for follow up visit. Allergies No Known Allergies Allergy (Verified 01/04/25 09:38) Medication List - Last Reconciled 01/04/25 by Carolee Valencia MD baclofen 10 mg PO BEDTIME 3 months carbidopa-levodopa 25-100 mg 1.5 tabs PO TID 90 days ibuprofen 600 mg PO TID PRN peg 3350-electrolytes 236-22.74-6.74 -5.86 gram (Golytely) 240 mL PO Q10M 1 day sertraline 100 mg PO DAILY Tobacco use date assessed: 01/04/25 Fall risk assessment: No Falls in past year Last assessed Fall Risk: 01/04/25 Dental Screening Dental Screen Date: 01/04/25 Did you have a dental visit in the last 12 months?: Yes Did you have a dental problem in the last 6 months where you did not have access to dental care?: No Was dental information given to patient?: Patient has dentist HPI Follow up HPI Details Pt presents c/o chronic cough for 1 month in the summer. Pt denies SOB, wheezing. He continues to smoke a half a pack a day and is trying to quit. Patient is established with a neurologist for Parkinson's disease. Chronic anxiety stable on sertraline [facility] Medical History Annual physical exam Parkinson's disease without dyskinesia Dizziness Depression Hyperlipidemia Cervical dystonia Parkinson's disease Cervical radiculopathy Surgical History (Updated 01/04/25 @ 15:22 by Carolee Valencia MD) H/O colonoscopy Family History Father No problems noted. Mother No problems noted. Social History Housing: House Alcohol intake: current Alcohol intake frequency: holidays/special occasions only Patient Tobacco Use Status: Current everyday Tobacco user Cigarettes Per Day: 10 e-Cigarette/Vaping Use: Never Used service: No Current occupational status: disabled Cognitive needs: No Hearing needs: No Vision needs: No Questionnaire PHQ-9 Over the last 2 weeks, how often have you been bothered by any of the following problems? 1. Little interest or pleasure in doing things: not at all 2. Feeling down, depressed, or hopeless: not at all 3. Trouble falling or staying asleep, or sleeping too much: not at all 4. Feeling tired or having little energy: not at all 5. Poor appetite or overeating: not at all 6. Feeling bad about yourself - or that you are a failure or have let yourself or your family down: not at all 7. Trouble concentrating on things, such as reading the newspaper or watching television: not at all 8. Moving or speaking so slowly that other people could have noticed. Or the opposite - being so fidgety or restless that you have been moving around a lot more than usual: not at all 9. Thoughts that you would be better off or of hurting yourself in some way: not at all Total score: 0 Depression Screening Interpretation: Negative Depression Screening Done: Yes 49883 - PHQ-9 Billing: Yes Source: Developed by Drs. Nithin Tubbs, Rashida Daly, Galo Oliva and colleagues, with an educational daria from [employer]. Thrive Questionnaire Date Thrive assessed: 02/25/24 AUDIT C Alcohol Use Questionnaire (AUDIT-C) 1. How often do you have a drink containing alcohol?: Never 3. How often do you have six or more drinks on one occasion?: Never Total Score: 0 GABRIELE-7 AMB Questionnaire GABRIELE-7 Date GABRIELE - 7 assessed: 02/25/24 Source: Developed by Drs. Nithin Tubbs, Rashida Daly, Galo Oliva and colleagues, with an educational daria from [employer]. Review of Systems Const All systems reviewed & are unremarkable except as noted in HPI and below Eyes Reports no additional complaints ENT Reports no additional complaints Card Reports no additional complaints Resp Reports no additional complaints GI Reports no additional complaints Reports no additional complaints Physical exam (Primary Care) Vital Signs: Last Vital Signs Pulse 98 01/04/25 09:34 Resp 18 01/04/25 09:34 BP 136/80 01/04/25 09:34 Pulse Ox 99 10/21/25 09:34 Oxygen Delivery Method Room Air 01/04/25 09:34 BMI result Body Mass Index 24.5 Tobacco/Smoking Status: Tobacco use Status Tobacco use date assessed 01/04/25 01/04/25 09:39 Patient Tobacco Use Status Current everyday Tobacco 01/04/25 09:39 e-Cigarette/Vaping Use Never Used 01/04/25 09:39 PHQ-9: PHQ-9 Score PHQ-9: Total score 0 01/04/25 10:05 Depression Screening Interpretation: Negative Thrive Assessment: Date of Thrive Assessment Date Thrive assessed 02/25/24 01/04/25 09:39 Const General: no acute distress HENMT Head: Yes normal to inspection Face and sinus: Yes normal facial exam Eyes General: appearance normal, both eyes and all related structures Resp Effort & Inspection: normal respiratory effort Auscultation: clear to auscultation bilaterally Cardio Rhythm: regular rhythm Heart sounds: S1 normal heart sound present and S2 normal heart sound present GI Inspection: Yes normal to inspection Palpation (GI): Soft to palpation Percussion: Yes normal to percussion Auscultation: normal bowel sounds Coding Level of Care Code Est Pt Level 4 (90508) Diagnoses H/O colonoscopy Z98.890 Hyperlipidemia E78.5 Depression F32.9 Parkinson's disease G20 Additional Codes PHQ-9 - 39329 - PHQ-9 Billing: Yes ([id number]) Assessment & Plan Assessment & Plan (1) H/O colonoscopy: Comment: 2 polyps 06/2018 repeat 3 yrs recommend the patient refused. Negative Cologuard October 2023 Code(s): Z98.890 - Other specified postprocedural states Category: Surgical Plan: Patient refused colonoscopy (2) Hyperlipidemia: Comment: Patient refused statin Code(s): E78.5 - Hyperlipidemia, unspecified Category: Medical Plan: Continue low-cholesterol diet (3) Depression: Code(s): F32.9 - Major depressive disorder, single episode, unspecified Category: Medical Plan: Continue sertraline (4) Parkinson's disease: Comment: f/u neurology Code(s): G20 - Parkinson's disease Category: Medical Plan: Continue current medications follow-up with Neurology Medications: Refilled sertraline 100 mg PO DAILY 90 tabs 3RF
[2025-01-04 09:34] VITALS: BP 136/80; PULSE 98; RESP 18; O2SAT 99; BMI 24.5
--- OUTSIDE RECORDS SUMMARY | 2025-01-04 10:42 | XMS_ITS | Encounter Summary ---
Author Organization [facility] Address [address] [facility] [place] [address] Care Team Providers Care Tie Puller Name Role Phone Ananth Lu MD Primary Care Provider [phone] Mandy Hoffman DO Primary Care Pro vider Unavailable Carolee Valencia MD Primary Care Provider UnavailMignon Garrido MD Unavailable [phone] Encounter Details Date Type Department Care Team Description 12/04/2011 Hospital Medical Records [address] [place] [address] Garima Flaherty Social History Tobacco Use Types Packs/Day Years Used Date Smoking Tobacco: Every Day Cigarettes 0.5 18 Smokeless Tobacco: Never Comments:Started @ age 28, O ccasional smoker Alcohol Use Standard Drinks/Week Comments Yes 0 (1 standard drink = 0.6 oz pur e alcohol) abuse October 2009 Sex Assigned at Date Recorded Not on file Job Start Date Occupation Industry Not on file Not on file Not on file documented as of this encounter Plan of Treatment Not on file documented as of this encounter Visit Diagnoses Not on filedocumented in this encounter Care Teams Tie Puller Relationship Specialty Start Date End Date Ananth Lu MD [address] [place] [address] PCP - General Internal Medicine 09/17/11 11/17/12 Mandy Hoffman DO [address] [place] [id number] PCP - General Internal Medicine 11/18/12 12/03/21 Carolee Valencia MD [address] [place] [address] PCP - General Internal Medicine 12/04/21 Mignon Dudley MD [address] [facility] [address] [place] [address] Specialist Neurosurgery 12/06/21 documented as of this encounter
--- OUTSIDE RECORDS SUMMARY | 2025-01-04 10:42 | XMS_ITS | Encounter Summary ---
Author Organization [facility] Address [address] [facility] [place] [address] Care Team Providers Care Seam Hammerer Name Role Phone Mandy Hoffman DO Primary Care Pro vider Unavailable Carolee Valencia MD Primary Care Provider Unavaila [facility] Mignon Dudley MD Unavailable [phone] Encounter Details Date Type Department Care Team Description 03/22/2016 Release of Information Medical Records [address] [place] [id number] Abstract, Provider Social History Tobacco Use Types Packs/Day Years Used Date Smoking Tobacco: Every Day Cigarettes 16 Smokeless Tobacco: Never Comments:Started @ age [...] on filedocumented in this encounter Care Teams Seam Hammerer Relationship Specialty Start Date End Date Mandy Hoffman DO PCP - General Internal Medicine 11/18/12 12/03/21 Carolee Valencia MD PCP - General Internal Medicine 12/04/21 Mignon Dudley MD [address] [place] [address] [address] [place] [address] Specialist Neurosurgery 12/06/21 documented as of this encounter
--- OUTSIDE RECORDS SUMMARY | 2025-01-04 10:42 | XMS_ITS | Encounter Summary ---
Author Organization [facility] Address [address] [place] [address] Care Team Providers Care Rural Health Consultant Name Role Phone Carolee Valencia MD Primary Care Provider Unavaila Mignon Rosario MD Unavailable [phone] Encounter Details Date Type Department Care Team Description 12/10/2021 SCAN [facility] Medical [facility] Neurosurgery [place] [address] [phone] Mignon Dudley MD [address] [place] [address] [phone] Social History Tobacco Use Types Packs/Day Years [...] on filedocumented in this encounter Care Teams Rural Health Consultant Relationship Specialty Start Date End Date Carolee Valencia MD PCP - General Internal Medicine 12/04/21 Mignon Dudley MD [address] [address] Specialist Neurosurgery 12/06/21 documented as of this encounter
--- OUTSIDE RECORDS SUMMARY | 2025-01-04 10:43 | XMS_ITS | Encounter Summary ---
Author Organization [facility] Address [address] [place] [address] Care Team Providers Care Writer Editor Name Role Phone Mandy Hoffman DO Primary Care Pro vider Unavailable Carolee Valencia MD Primary Care Provider Unavaila [facility] Mignon Dudley MD Unavailable [phone] Encounter Details Date Type Department Care Team Description 07/28/2014 Hospital Medical Records [address] [place] [address] Karen Metz MD [address] [place] [address] Social History Tobacco Use Types Packs/Day Years [...] on filedocumented in this encounter Care Teams Writer Editor Relationship Specialty Start Date End Date Mandy Hoffman DO PCP - General Internal Medicine 11/18/12 12/03/21 Carolee Valencia MD PCP - General Internal Medicine 12/04/21 Mignon Dudley MD [address] [facility] [address] [place] [address] Specialist Neurosurgery 12/06/21 documented as of this encounter
--- OUTSIDE RECORDS SUMMARY | 2025-01-04 10:43 | XMS_ITS | Encounter Summary ---
Author Organization [facility] Address [address] [facility] [place] [address] Care Team Providers Care Gas Stove Servicer Helper Name Role Phone Mandy Hoffman DO Primary Care Pro vider Unavailable Carolee Valencia MD Primary Care Provider Unavaila [facility] Mignon Dudley MD Unavailable [phone] Encounter Details Date Type Department Care Team Description 07/14/2014 Orders Only General Surgery [address] [place] [phone] Karen Metz MD [address] [place] [phone] Pulmonary infiltrate (Primary Dx) Social History Tobacco Use Types Packs/Day Years [...] documented as of this encounter Visit Diagnoses Diagnosis Pulmonary infiltrate- Primary Other nonspecific abnormal finding of lung field documented in this encounter Care Teams Gas Stove Servicer Helper Relationship Specialty Start Date End Date Mandy Hoffman DO PCP - General Internal Medicine 11/18/12 12/03/21 Carolee Valencia MD PCP - General Internal Medicine 12/04/21 Mignon Dudley MD [address] [place] [address] Specialist Neurosurgery 12/06/21 documented as of this encounter
--- OUTSIDE RECORDS SUMMARY | 2025-01-04 10:43 | XMS_ITS | Encounter Summary ---
Author Organization [facility] Address [address] [place] [address] Care Team Providers Care Fuel Cell Technician Name Role Phone Carolee Valencia MD Primary Care Provider Unavaila Mignon Rosario MD Unavailable [phone] Encounter Details Date Type Department Care Team Description 11/14/2022 Incoming Correspondence [facility] Medical [facility] Neurosurgery [place] [address] [phone] Mignon Dudley MD [address] [place] [address] Social History Tobacco Use Types Packs/Day Years [...] on filedocumented in this encounter Care Teams Fuel Cell Technician Relationship Specialty Start Date End Date Carolee Valencia MD PCP - General Internal Medicine 12/04/21 Mignon Dudley MD [address] [address] Specialist Neurosurgery 12/06/21 documented as of this encounter
--- OUTSIDE RECORDS SUMMARY | 2025-01-04 10:43 | XMS_ITS | Encounter Summary ---
Author Organization [facility] Address [address] [facility] [place] [address] Care Team Providers Care Tire Bladder Maker Name Role Phone Mandy Hoffman DO Primary Care Pro vider Unavailable Carolee Valencia MD Primary Care Provider UnavailMignon Garrido MD Unavailable [phone] Reason for Visit * Reason Comments Encounter Details Date Type Department Care Team Description 07/18/2014 Telephone General Surgery [address] [place] [address] [phone] Karen Medrano MD [address] [place] [address] [phone] Social History Tobacco Use Types Packs/Day Years [...] on file documented as of this encounter Miscellaneous Notes * Telephone Encounter - Deya Govea M.A. - 07/19/2014 10:50 AM EDT Patient went to medical records and( marques lares speaking) called me and i gave her the resultsand she translated it to the patient he will have the CXR in 3 mos he understood . * Telephone Encounter - Deya Govea M.A. - 07/18/2014 1:22 PM EDT Called patient left message to call office back for results of CXR . * Telephone Encounter - Deya Govea M.A. - 07/18/2014 1:21 PM EDT Message copied by DEYA GOVEA M.A. on FriJuly 18, 2014 1:21 PM ------ Message from: KAREN MEDRANO Created: FriJul 14, 2014 9:28 AM Please contact patient. Pre-op CXR shows small infiltrate (not a mass; likely a resolving infection)... nothing to worry about at this point but should repeat CXR in 3 months (order placed). Karen Medrano ------ documented in this encounter Plan of Treatment Not on file documented as of this encounter Visit Diagnoses Not on filedocumented in this encounter Care Teams Tire Bladder Maker Relationship Specialty Start Date End Date Mandy Hoffman DO PCP - General Internal Medicine 11/18/12 12/03/21 Carolee Valencia MD PCP - General Internal Medicine 12/04/21 Mignon Dudley MD [address] [place] [address] [place] [address] Specialist Neurosurgery 12/06/21 documented as of this encounter
== END 2025-01-04 15:24 | disposition home or self-care (01) ==
LOC: HO.HMCC 09:32
PROVIDERS: PCP Internal Medicine; Visit Provider Internal Medicine
DX: E78.5 Hyperlipidemia, unspecified (principal); F32.9 Major depressive disorder, single episode, unspecified; Z98.890 Other specified postprocedural states; G20.C Parkinsonism, unspecified

== ENCOUNTER → 2025-01-04 09:31 | Outpatient (BNVA) | payer MEDICARE, SELFPAY | PROVIDERS: PCP Internal Medicine; Visit Provider Internal Medicine | DX: E78.5 Hyperlipidemia, unspecified (principal); F32.9 Major depressive disorder, single episode, unspecified; G20.A1 Parkinson's disease without dyskinesia, without mention of fluctuations; F41.9 Anxiety disorder, unspecified; Z79.899 Other long term (current) drug therapy; Z13.31 Encounter for screening for depression | CPT/HCPCS: 96127; 99212 ==

== ENCOUNTER 2025-01-17 11:14 | Outpatient (AMB) | payer MEDICARE, SELFPAY ==
[2025-01-17 11:24] VITALS: BP 140/82; PULSE 75; O2SAT 98; BMI 24.8
--- NOTE | 2025-01-17 11:24 | MHC.OFFVIS ---
Vital Signs 01/17/25 11:24 Height 5 ft 2 in Weight 135 lb 6 oz BMI 24.8 BP 140/82 H Blood Pressure Location Rt brachial Position Sitting Pulse 75 Pulse Source Pulse Oximeter Pulse Oximetry (%) 98 Oxygen Delivery Method Room Air Intake Visit Reasons: F/U Intake Note: Follow up Parkinson's disease without dyskinesia, Cervical dystonia and spondylosis Mechanical Drawing Teacher Required: No Accompanied by: Self / Same As Patient Allergies No Known Allergies Allergy (Verified 01/17/25 11:24) Medication List - Last Reconciled 01/17/25 by Enid Mcclelland MD baclofen 10 mg PO BEDTIME 3 months carbidopa-levodopa 25-100 mg 1.5 tabs PO TID 90 days ibuprofen 600 mg PO TID PRN peg 3350-electrolytes 236-22.74-6.74 -5.86 gram (Golytely) 240 mL PO Q10M 1 day sertraline 100 mg PO DAILY HPI Comments Details: 64y/o male with parkinsons disease , neck pain , cervical dystonia and depression comes for follow up. He is doing good. He is independent in all his ADLS>He is active. His parkinsons has mildly worsened . His neck pain and stiffness are better with PT - he has chronic back issues.no change He declined neck surgery . MRI C spine showed cervical spondylosis greatest at C6-C7 level with moderate stenosis and flattening of the central cord and severe right foraminal stenosis. There were moderate to mild changes in the other levels. 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 [facility] Medical History Annual physical exam Parkinson's disease without dyskinesia Dizziness Depression Hyperlipidemia Cervical dystonia Parkinson's disease Cervical radiculopathy Surgical History H/O colonoscopy Family History Father No problems noted. Mother No problems noted. Social History Housing: House Alcohol intake: current Alcohol intake frequency: holidays/special occasions only Patient Tobacco Use Status: Current everyday Tobacco user Cigarettes Per Day: 10 e-Cigarette/Vaping Use: Never Used service: No Current occupational status: disabled Cognitive needs: No Hearing needs: No Vision needs: No Physical Exam Vital Signs: Last Vital Signs Pulse 75 01/17/25 11:24 BP 140/82 H 01/17/25 11:24 Pulse Ox 98 01/17/25 11:24 Oxygen Delivery Method Room Air 01/17/25 11:24 BMI result Body Mass Index 24.8 Const Other: moderate head tremors and cervical dystonia General: cooperative and healthy appearing Nutritional Appearance: average body habitus Neuro Other: No rest tremors mild bradykinesia R>L Fine finger movements and foot taps decreased right more than left. Head tremors. Evaluation of the gait -head tremors and severely decreased arm swing on the right and mild stooped. Assessment & Plan Assessment & Plan (1) Parkinson's disease without dyskinesia: Code(s): G20.A1 - Parkinson's disease without dyskinesia, without mention of fluctuations Category: Medical (2) Cervical spondylosis: Code(s): M47.812 - Spondylosis without myelopathy or radiculopathy, cervical region Category: Medical (3) Cervical dystonia: Code(s): G24.3 - Spasmodic torticollis Category: Medical Plan Continue carbidopa/levodopa 25/100 1.5 tabs tid( does not want to increase dose) baclofen 10mg qhs ( flexeril co pay increased as of Mar 17 2022 ) continue exercise He declined C spine surgery Coding Level of Care Code Est Pt Level 4 (78986) Diagnoses Parkinson's disease without dyskinesia G20.A1 Cervical spondylosis M47.812 Cervical dystonia G24.3
== END 2025-01-17 11:59 | disposition home or self-care (01) ==
LOC: HO.HSMS 11:15
PROVIDERS: PCP Internal Medicine; Visit Provider Psychiatry & Neurology Neurology
DX: G20.A1 Parkinson's disease without dyskinesia, without mention of fluctuations (principal); M47.812 Spondylosis without myelopathy or radiculopathy, cervical region; G24.3 Spasmodic torticollis
CPT/HCPCS: 99214

== ENCOUNTER → 2025-01-17 11:14 | Outpatient (BNVA) | payer MEDICARE, SELFPAY | PROVIDERS: PCP Internal Medicine; Visit Provider Psychiatry & Neurology Neurology | DX: G20.A1 Parkinson's disease without dyskinesia, without mention of fluctuations (principal); G24.3 Spasmodic torticollis; M47.812 Spondylosis without myelopathy or radiculopathy, cervical region | CPT/HCPCS: 99212 ==